=== PATIENT | female | born 1950 | race Caucasian/White ===

== ENCOUNTER → 2016-12-23 | Outpatient (CLI) | payer OTHER ==
[~2016-12-23] MED LIST: ASPIRIN; HCTZ; OYSTER CALCIUM500 MG; PREMPRO; TOPROL XL; VIT B-6
--- NOTE | ~2016-12-23 | US48 ---
[facility] A Service of [facility] RADIOLOGY TEXT RESULTS PATIENT: LAURYN DING LOCATION: [facility] : 50 UNIT #: [id number] AGE: [address]: Viviana Damon SIGN ARTIST SEX: F ORDER DR: [id number] [address] [address] [id number] O MR#: [id number] Acc #: [id number] NAME: LAURYN DING : 1950 SEX: F STUDY DATE/TIME: 12/23/2016 12:56 UNIT: [facility] ROOM: STUDY DESCRIPTION: US Extremity Anatomic Specific Attending Physician: Viviana Damon A.P.R.N. Referring Physician: Viviana Damon A.P.R.N. Ordering Physician: Viviana Damon A.P.R.N. Primary Care Physician: Viviana Damon A.P.R.N. MEDICAL IMAGING REPORT This report is preliminary unless electronic signature is present. EXAM Ultrasound of the right lower extremity soft tissues 12/23/2016 HISTORY Palpable raised mass right anterior lower leg for 1 week with no known trauma. FINDINGS Ultrasound of the site of palpated abnormality anterior right lower leg reveals normal muscular and subcutaneous tissues. No cystic or solid mass lesions were identified. IMPRESSION Negative ultrasound of the site of palpated abnormality right anterior lower leg. Dictated by... Luis Enrique Nina M.D. THIS IS AN ELECTRONICALLY VERIFIED REPORT Luis Enrique Nina M.D. at 12/24/2016 10:18 AM LIZ/checo TD: 12/23/2016 18:17 JOB #: [id number] MEDICAL IMAGING REPORT Page 1 of 1
== END | disposition home or self-care (01) ==
LOC: SGUS 12:43
DX: M79.604 Pain in right leg (principal)
CPT/HCPCS: 76882